=== PATIENT | male | born 1990 | race Caucasian/White ===

== ENCOUNTER 2023-04-05 14:28 | Emergency (ER) | payer BC, OTHER ==
[2023-04-05 14:58] VITALS: BP 133/90; PULSE 95; RESP 15; TEMP 97.9; BMI 22.2
== END 2023-04-05 15:48 | disposition home or self-care (01) ==
LOC: FER 14:28
DX: S93.602A Unspecified sprain of left foot, initial encounter (principal); W10.9XXA Fall (on) (from) unspecified stairs and steps, initial encounter
CPT/HCPCS: 73630-TC-LT; 99283-25